=== PATIENT | male | born 1980 | race Caucasian/White ===

== ENCOUNTER 2022-01-25 13:09 | Emergency (ER) | payer SELFPAY ==
[~2022-01-25] VITALS: Ht 182.9 cm; Wt 75.0 kg
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
--- NOTE | 2022-01-25 14:20 | NUR ---
dr mares at bedside.
[2022-01-25] MEDS ORDERED: iohexol 300mg/ml 100ml inj. ONE (14:43)
--- NOTE | 2022-01-25 14:48 | NUR ---
[employer] AT HERE AT BEDSIDE ,PT IS NOT IN ROOM .WENT TO CT SCAN ,NOTIFIED THE OFFICER.
[2022-01-25] MEDS ORDERED: LIDO700A32 TOP (15:34)
[2022-01-25] MEDS ORDERED: KETO10TA2 PO (15:34)
[2022-01-25] MEDS ORDERED: acetaminophen 325mg tablet PO ONE (15:35)
[2022-01-25] MEDS ORDERED: ketorolac trometh. 30mg/ml inj. IV ONE (15:35)
[2022-01-25] MEDS ORDERED: proCHLORperazine 10 MG/2 ml inj IV ONE (15:35)
[2022-01-25] MEDS ORDERED: HYDROcodone/acetaminophen 5mg/325mg tablet PO ONE (15:35)
[2022-01-25 18:12] VITALS: BP 148/90
== END 2022-01-25 18:37 | disposition home or self-care (01) ==
LOC: ER 13:11
DX: S02.2XXA Fracture of nasal bones, initial encounter for closed fracture (principal); S22.32XA Fracture of one rib, left side, initial encounter for closed fracture; S80.211A Abrasion, right knee, initial encounter; S40.811A Abrasion of right upper arm, initial encounter; M79.601 Pain in right arm; M79.605 Pain in left leg; R51.9 Headache, unspecified; M54.89 Other dorsalgia; Z59.00 Homelessness unspecified; Z88.0 Allergy status to penicillin; Y08.89XA Assault by other specified means, initial encounter; Y93.89 Activity, other specified; Y92.89 Other specified places as the place of occurrence of the external cause; Y99.8 Other external cause status
CPT/HCPCS: 70450; 70486; 71260; 72125; 73090; 73560; 74177; 96374; 96375; 99285; J0780; J1885; Q9967

== ENCOUNTER 2022-05-13 20:56 | Emergency (ER) | payer MEDICAID ==
[~2022-05-13] VITALS: Ht 182.9 cm; Wt 75.0 kg
[~2022-05-13 20:56] MED LIST: KETO10TA2 PO; LIDO700A32 TOP; SULF1TAB45 PO
[2022-05-13 21:51] LABS: BASOPHILS % (AUTO) 0.5 % (0-1); EOSINOPHILS # (AUTO) 0.1 X10'3 (0-0.9); EOSINOPHILS % (AUTO) 0.9 % (0-6); HEMATOCRIT 44.1 % (42.0-52.0); HEMOGLOBIN 15.2 g/dl (14.0-17.9); LYMPHOCYTES # (AUTO) 1.4 X10'3 (1.1-4.8); LYMPHOCYTES % (AUTO) 13.6 % (21-51); MEAN CORPUSCULAR HEMOGLOBIN 31.9 PG (27.0-31.0); MEAN CORPUSCULAR HGB CONC 34.4 g/dL (33.0-36.5); MEAN CORPUSCULAR VOLUME 92.7 FL (78-98); MEAN PLATELET VOLUME 9.4 FL (7.4-10.4); MONOCYTES # (AUTO) 1.7 X10'3 (0-0.9); MONOCYTES % (AUTO) 16.5 % (2-12); NEUTROPHILS # (AUTO) 7.2 X10'3 (1.8-7.7); NEUTROPHILS % (AUTO) 68.5 % (42-75); PLATELET COUNT 208 X10'3 (140-440); RED BLOOD COUNT 4.76 X10'6 (4.70-6.10); RED CELL DISTRIBUTION WIDTH 13.5 % (11.5-14.5); WHITE BLOOD COUNT 10.5 X10'3 (4.5-11.0)
[2022-05-13 22:03] LABS: ALANINE AMINOTRANSFERASE 20 U/L (12-78); ALBUMIN 3.9 G/DL (3.4-5.0); ALKALINE PHOSPHATASE 88 IU/L (46-116); ANION GAP 6 (8-16); ASPARTATE AMINO TRANSFERASE 17 U/L (10-37); BILIRUBIN,TOTAL 0.5 MG/DL (0.1-1.0); BLOOD UREA NITROGEN 16 MG/DL (7-18); BUN/CREATININE RATIO 18.4 (5.4-32.0); CALCIUM 8.9 MG/DL (8.5-10.1); CHLORIDE 98 MMOL/L (99-107); CREATININE 0.87 MG/DL (0.60-1.10); GLUCOSE 85 MG/DL (70-104); POTASSIUM 4.2 MMOL/L (3.5-5.1); SODIUM 132 MMOL/L (135-145); TOTAL CARBON DIOXIDE 27.6 MMOL/L (24-32); TOTAL PROTEIN 7.9 G/DL (6.4-8.2); eGFR > 90 ML/MIN
[2022-05-13 22:11] LABS: MAGNESIUM 2.1 MG/DL (1.5-2.4)
[2022-05-13 22:27] LABS: TOTAL CELLS COUNTED 100
[2022-05-13 22:28] LABS: PLATELET ESTIMATE NORMAL
[2022-05-14 04:01] VITALS: BP 127/80
== END 2022-05-14 04:03 | disposition home or self-care (01) ==
LOC: ER 20:57
DX: R07.89 Other chest pain (principal); F17.200 Nicotine dependence, unspecified, uncomplicated; Z88.0 Allergy status to penicillin; Z59.00 Homelessness unspecified
CPT/HCPCS: 36415; 71045; 80053; 83735; 83880; 84484; 85007; 85025; 93005; 99285

== ENCOUNTER 2022-05-19 16:35 | Emergency (ER) | payer MEDICAID ==
[~2022-05-19] VITALS: Ht 182.9 cm; Wt 75.0 kg
[2022-05-19 17:00] VITALS: BP 165/99
[2022-05-19 18:29] LABS: BASOPHILS # (AUTO) 0.1 X10'3 (0-0.2); EOSINOPHILS # (AUTO) 0.2 X10'3 (0-0.9); EOSINOPHILS % (AUTO) 2.6 % (0-6); HEMATOCRIT 40.8 % (42.0-52.0); HEMOGLOBIN 13.9 g/dl (14.0-17.9); LYMPHOCYTES # (AUTO) 2.3 X10'3 (1.1-4.8); LYMPHOCYTES % (AUTO) 24.8 % (21-51); MEAN CORPUSCULAR HEMOGLOBIN 31.9 PG (27.0-31.0); MEAN CORPUSCULAR HGB CONC 34.1 g/dL (33.0-36.5); MEAN CORPUSCULAR VOLUME 93.5 FL (78-98); MEAN PLATELET VOLUME 8.1 FL (7.4-10.4); MONOCYTES # (AUTO) 0.8 X10'3 (0-0.9); MONOCYTES % (AUTO) 9.1 % (2-12); NEUTROPHILS # (AUTO) 5.7 X10'3 (1.8-7.7); NEUTROPHILS % (AUTO) 62.5 % (42-75); PLATELET COUNT 329 X10'3 (140-440); RED BLOOD COUNT 4.37 X10'6 (4.70-6.10); RED CELL DISTRIBUTION WIDTH 12.9 % (11.5-14.5); WHITE BLOOD COUNT 9.1 X10'3 (4.5-11.0)
[2022-05-19 18:43] LABS: ALANINE AMINOTRANSFERASE 27 U/L (12-78); ALBUMIN 3.5 G/DL (3.4-5.0); ALBUMIN/GLOBULIN RATIO 0.9 (1.1-1.5); ALKALINE PHOSPHATASE 92 IU/L (46-116); ANION GAP 4 (8-16); ASPARTATE AMINO TRANSFERASE 21 U/L (10-37); BILIRUBIN,TOTAL 0.3 MG/DL (0.1-1.0); BLOOD UREA NITROGEN 19 MG/DL (7-18); BUN/CREATININE RATIO 20.9 (5.4-32.0); CALCIUM 8.9 MG/DL (8.5-10.1); CHLORIDE 103 MMOL/L (99-107); CREATININE 0.91 MG/DL (0.60-1.10); GLUCOSE 98 MG/DL (70-104); POTASSIUM 4.2 MMOL/L (3.5-5.1); SODIUM 138 MMOL/L (135-145); TOTAL CARBON DIOXIDE 30.6 MMOL/L (24-32); TOTAL PROTEIN 7.2 G/DL (6.4-8.2); eGFR > 90 ML/MIN
[2022-05-19] MEDS ORDERED: HYDROcodone/acetaminophen 10/325mg tab PO ONE (18:45)
[2022-05-19] MEDS ORDERED: sulfamethoxazole/trimethoprim DS (800/160mg) tablet PO ONE (18:50)
[2022-05-19] MEDS ORDERED: SULF1TAB49 PO ×2 (18:51→19:10)
== END 2022-05-19 19:23 | disposition home or self-care (01) ==
LOC: ER 16:36
DX: L02.512 Cutaneous abscess of left hand (principal); F17.200 Nicotine dependence, unspecified, uncomplicated; Z88.0 Allergy status to penicillin; Z59.00 Homelessness unspecified
CPT/HCPCS: 26010; 36415; 73140; 80053; 85025; 99284; A6223; J7030; A6258

== ENCOUNTER 2022-11-12 12:23 | Emergency (ER) | payer MEDICAID ==
[~2022-11-12] VITALS: Ht 182.9 cm; Wt 90.9 kg
[~2022-11-12 12:23] MED LIST changes: -SULF1TAB45 PO
[2022-11-12 15:38] LABS: BASOPHILS % (AUTO) 0.6 % (0-1); EOSINOPHILS # (AUTO) 0.2 X10'3 (0-0.9); EOSINOPHILS % (AUTO) 3.6 % (0-6); HEMATOCRIT 39.2 % (42.0-52.0); HEMOGLOBIN 13.1 g/dl (14.0-17.9); LYMPHOCYTES % (AUTO) 29.9 % (21-51); MEAN CORPUSCULAR HEMOGLOBIN 32.7 PG (27.0-31.0); MEAN CORPUSCULAR HGB CONC 33.5 g/dL (33.0-36.5); MEAN CORPUSCULAR VOLUME 97.5 FL (78-98); MEAN PLATELET VOLUME 9.4 FL (7.4-10.4); MONOCYTES # (AUTO) 0.7 X10'3 (0-0.9); MONOCYTES % (AUTO) 9.7 % (2-12); NEUTROPHILS # (AUTO) 3.8 X10'3 (1.8-7.7); NEUTROPHILS % (AUTO) 56.2 % (42-75); PLATELET COUNT 221 X10'3 (140-440); RED BLOOD COUNT 4.02 X10'6 (4.70-6.10); RED CELL DISTRIBUTION WIDTH 14.4 % (11.5-14.5); WHITE BLOOD COUNT 6.7 X10'3 (4.5-11.0)
[2022-11-12 15:41] LABS: URINE AMPHETAMINE SCREEN NEGATIVE (Neg); URINE BARBITUATE SCREEN NEGATIVE (Neg); URINE BENZODIAZEPINES SCREEN NEGATIVE (Neg); URINE CANNABINOID SCREEN NEGATIVE (Neg); URINE COCAINE SCREEN NEGATIVE (Neg); URINE METHADONE SCREEN NEGATIVE (Neg); URINE OPIATE SCREEN NEGATIVE (Neg); URINE PHENCYCLIDINE SCREEN NEGATIVE (Neg)
[2022-11-12 15:42] LABS: CLARITY,URINE CLEAR (Clear); COLOR,URINE YELLOW (Yellow); GLUCOSE, URINE NEGATIVE (Neg); KETONES,URINE NEGATIVE (Neg); LEUKOCYTE ESTERASE ,URINE NEGATIVE (Neg); NITRITES, URINE NEGATIVE (Neg); OCCULT BLOOD,URINE NEGATIVE (Neg); PH,URINE 5.5 (4.8-8.0); PROTEIN,URINE NEGATIVE (Neg); UROBILINOGEN,URINE 0.2 E.U/dL (0.2-1.0)
[2022-11-12 15:53] LABS: UA COLLECTION TYPE CLN CATCH MIDSTREAM
[2022-11-12 15:56] LABS: ALANINE AMINOTRANSFERASE 89 U/L (12-78); ALBUMIN 4.1 G/DL (3.4-5.0); ALBUMIN/GLOBULIN RATIO 1.4 (1.1-1.5); ALKALINE PHOSPHATASE 100 IU/L (46-116); ANION GAP 6 (8-16); ASPARTATE AMINO TRANSFERASE 48 U/L (10-37); BILIRUBIN,TOTAL 0.3 MG/DL (0.1-1.0); BLOOD UREA NITROGEN 19 MG/DL (7-18); BUN/CREATININE RATIO 21.8 (5.4-32.0); CALCIUM 8.5 MG/DL (8.5-10.1); CHLORIDE 106 MMOL/L (99-107); CREATININE 0.87 MG/DL (0.60-1.10); ETHANOL < 0.010 GM/DL (0.0-0.010); GLUCOSE 93 MG/DL (70-104); POTASSIUM 4.4 MMOL/L (3.5-5.1); SODIUM 142 MMOL/L (135-145); TOTAL CARBON DIOXIDE 29.8 MMOL/L (24-32); eGFR > 90 ML/MIN
--- NOTE | 2022-11-13 04:46 | NUR ---
packet sent to [facility]
[2022-11-13 05:07] VITALS: BP 109/70
[2022-11-13] MEDS ORDERED: OLAN5TAB75 PO (05:10)
--- NOTE | 2022-11-13 06:33 | NUR ---
Patient sleeping supine. No distress observed. Continue to monitor.
--- NOTE | 2022-11-13 07:53 | NUR ---
Андрей Birch, [facility], .
[2022-11-13] MEDS ORDERED: olanzapine 10mg tablet PO SCH (08:00)
--- NOTE | 2022-11-13 09:40 | NUR ---
Dwain GONZALEZ, evaluating patient. No distress observed. Continue to monitor.
--- NOTE | 2022-11-13 11:22 | NUR ---
Patient calm and cooperative. No distress observed. Continue to monitor.
--- NOTE | 2022-11-13 12:23 | NUR ---
Patient eating lunch. No distress observed. Continue to monitor.
== END 2022-11-13 16:56 ==
LOC: ER 12:24
DX: R45.851 Suicidal ideations (principal); Z20.822 Contact with and (suspected) exposure to COVID-19; F15.10 Other stimulant abuse, uncomplicated; Z59.00 Homelessness unspecified; Z88.0 Allergy status to penicillin; Z79.2 Long term (current) use of antibiotics
CPT/HCPCS: 36415; 80053; 80305; 80320; 81003; 84443; 85025; 87811; 99285

== ENCOUNTER 2022-12-10 12:07 | Emergency (ER) | payer MEDICAID ==
[~2022-12-10] VITALS: Ht 182.9 cm; Wt 81.8 kg
[~2022-12-10 12:07] MED LIST changes: -KETO10TA2 PO; -LIDO700A32 TOP; +OLAN5TAB75 PO
[2022-12-10 14:05] LABS: BASOPHILS # (AUTO) 0.1 X10'3 (0-0.2); BASOPHILS % (AUTO) 1.2 % (0-1); EOSINOPHILS # (AUTO) 0.2 X10'3 (0-0.9); EOSINOPHILS % (AUTO) 2.2 % (0-6); HEMATOCRIT 42.3 % (42.0-52.0); HEMOGLOBIN 14.3 g/dl (14.0-17.9); LYMPHOCYTES # (AUTO) 2.4 X10'3 (1.1-4.8); MEAN CORPUSCULAR HEMOGLOBIN 32.5 PG (27.0-31.0); MEAN CORPUSCULAR HGB CONC 33.8 g/dL (33.0-36.5); MEAN CORPUSCULAR VOLUME 96.4 FL (78-98); MEAN PLATELET VOLUME 9.1 FL (7.4-10.4); MONOCYTES # (AUTO) 0.9 X10'3 (0-0.9); MONOCYTES % (AUTO) 9.1 % (2-12); NEUTROPHILS # (AUTO) 5.9 X10'3 (1.8-7.7); NEUTROPHILS % (AUTO) 62.5 % (42-75); PLATELET COUNT 214 X10'3 (140-440); RED BLOOD COUNT 4.39 X10'6 (4.70-6.10); RED CELL DISTRIBUTION WIDTH 13.4 % (11.5-14.5); WHITE BLOOD COUNT 9.4 X10'3 (4.5-11.0)
[2022-12-10 14:10] LABS: URINE AMPHETAMINE SCREEN NEGATIVE (Neg); URINE BARBITUATE SCREEN NEGATIVE (Neg); URINE BENZODIAZEPINES SCREEN NEGATIVE (Neg); URINE CANNABINOID SCREEN NEGATIVE (Neg); URINE COCAINE SCREEN NEGATIVE (Neg); URINE METHADONE SCREEN NEGATIVE (Neg); URINE OPIATE SCREEN NEGATIVE (Neg); URINE PHENCYCLIDINE SCREEN NEGATIVE (Neg)
[2022-12-10 14:17] LABS: ALANINE AMINOTRANSFERASE 48 U/L (12-78); ALBUMIN 4.4 G/DL (3.4-5.0); ALBUMIN/GLOBULIN RATIO 1.5 (1.1-1.5); ALKALINE PHOSPHATASE 74 IU/L (46-116); ANION GAP 9 (8-16); ASPARTATE AMINO TRANSFERASE 32 U/L (10-37); BILIRUBIN,TOTAL 0.5 MG/DL (0.1-1.0); BLOOD UREA NITROGEN 19 MG/DL (7-18); BUN/CREATININE RATIO 21.8 (5.4-32.0); CALCIUM 9.1 MG/DL (8.5-10.1); CHLORIDE 101 MMOL/L (99-107); CREATININE 0.87 MG/DL (0.60-1.10); GLUCOSE 89 MG/DL (70-104); POTASSIUM 4.1 MMOL/L (3.5-5.1); SODIUM 139 MMOL/L (135-145); TOTAL CARBON DIOXIDE 28.7 MMOL/L (24-32); TOTAL PROTEIN 7.3 G/DL (6.4-8.2); eGFR > 90 ML/MIN
[2022-12-10 14:18] LABS: ETHANOL < 0.010 GM/DL (0.0-0.010)
--- NOTE | 2022-12-10 14:30 | NUR ---
Patient eating lunch. No distress observed. Continue to monitor.
[2022-12-10 15:24] LABS: CLARITY,URINE CLEAR (Clear); COLOR,URINE STRAW (Yellow); GLUCOSE, URINE NEGATIVE (Neg); KETONES,URINE NEGATIVE (Neg); LEUKOCYTE ESTERASE ,URINE NEGATIVE (Neg); NITRITES, URINE NEGATIVE (Neg); OCCULT BLOOD,URINE NEGATIVE (Neg); PROTEIN,URINE NEGATIVE (Neg); UROBILINOGEN,URINE 0.2 E.U/dL (0.2-1.0)
[2022-12-10 15:25] LABS: UA COLLECTION TYPE CLN CATCH MIDSTREAM
[2022-12-10] MEDS ORDERED: OLAN10TA73 PO ×2 (16:54)
[2022-12-10] MEDS ORDERED: LAMO25TA41 PO (16:54)
[2022-12-10] MEDS ORDERED: LAMO25TA5 PO (17:18)
--- NOTE | 2022-12-10 19:23 | NUR ---
The patient was made aware of the plan of care. He has been having constant voices prior to admit to the ER despite being med complaint and not abusing any substances. He reports suicidal thoughts and feeling hopeless about continued mental health symptoms "It's getting a little bit worse and a little bit worse all the time"
--- NOTE | 2022-12-10 19:26 | NUR ---
Call to [facility] and made them aware that the patient needed an ankle monitor senior trial attorney.
--- NOTE | 2022-12-10 19:46 | NUR ---
Nurse to nurse with [facility]
--- NOTE | 2022-12-10 20:27 | NUR ---
[facility]. [facility] will arrange transport for in the AM.
[2022-12-10] MEDS ORDERED: olanzapine 10mg tablet PO SCH (21:00)
--- NOTE | 2022-12-10 21:59 | NUR ---
The patient appears to be sleeping.
--- NOTE | 2022-12-10 22:51 | NUR ---
CORRECTION: THE PATIENT HAS BEEN ACCEPTED AT [facility] [place] PER RN AT THE [place] [facility] NOT IN [place]
--- NOTE | 2022-12-10 23:57 | NUR ---
The patient appears to be sleeping
--- NOTE | 2022-12-11 00:49 | NUR ---
The patient appears to be sleeping
--- NOTE | 2022-12-11 02:41 | NUR ---
The patient appears to be sleeping
--- NOTE | 2022-12-11 05:05 | NUR ---
The patient appears to be sleeping
[2022-12-11 05:33] VITALS: BP 106/68
--- NOTE | 2022-12-11 06:34 | NUR ---
Patient sleeping supine. No distress observed. Continue to monitor.
[2022-12-11] MEDS ORDERED: lamoTRIgine 25mg tablet PO SCH (08:00)
[2022-12-11] MEDS ORDERED: LAMOTRIGINE PO SCH (08:00)
[2022-12-11] MEDS ORDERED: olanzapine 10mg tablet PO SCH (08:00)
--- NOTE | 2022-12-11 08:10 | NUR ---
Patient sitting up and eating breakfast. No distress observed. Continue to monitor.
== END 2022-12-11 09:11 ==
LOC: ER 12:08
DX: R45.851 Suicidal ideations (principal); Z20.822 Contact with and (suspected) exposure to COVID-19; R45.850 Homicidal ideations; F12.10 Cannabis abuse, uncomplicated; Z88.0 Allergy status to penicillin; Z79.899 Other long term (current) drug therapy
CPT/HCPCS: 36415; 80053; 80305; 80320; 81003; 84443; 85025; 87811; 99285

== ENCOUNTER 2023-01-03 12:38 | Emergency (ER) | payer MEDICAID ==
[~2023-01-03] VITALS: Ht 182.9 cm; Wt 86.4 kg
[~2023-01-03 12:38] MED LIST changes: +LAMO25TA5 PO; +OLAN10TA73 PO; -OLAN5TAB75 PO
[2023-01-03 15:49] LABS: BASOPHILS % (AUTO) 0.6 % (0-1); EOSINOPHILS # (AUTO) 0.2 X10'3 (0-0.9); EOSINOPHILS % (AUTO) 3.2 % (0-6); HEMATOCRIT 40.2 % (42.0-52.0); HEMOGLOBIN 13.8 g/dl (14.0-17.9); LYMPHOCYTES # (AUTO) 2.3 X10'3 (1.1-4.8); LYMPHOCYTES % (AUTO) 35.5 % (21-51); MEAN CORPUSCULAR HEMOGLOBIN 32.7 PG (27.0-31.0); MEAN CORPUSCULAR HGB CONC 34.2 g/dL (33.0-36.5); MEAN CORPUSCULAR VOLUME 95.6 FL (78-98); MEAN PLATELET VOLUME 9.3 FL (7.4-10.4); MONOCYTES # (AUTO) 0.7 X10'3 (0-0.9); MONOCYTES % (AUTO) 9.9 % (2-12); NEUTROPHILS # (AUTO) 3.4 X10'3 (1.8-7.7); NEUTROPHILS % (AUTO) 50.8 % (42-75); PLATELET COUNT 184 X10'3 (140-440); RED BLOOD COUNT 4.21 X10'6 (4.70-6.10); RED CELL DISTRIBUTION WIDTH 12.9 % (11.5-14.5); WHITE BLOOD COUNT 6.6 X10'3 (4.5-11.0)
[2023-01-03 16:13] LABS: ALANINE AMINOTRANSFERASE 24 U/L (12-78); ALBUMIN/GLOBULIN RATIO 1.5 (1.1-1.5); ALKALINE PHOSPHATASE 89 IU/L (46-116); ANION GAP 4 (8-16); ASPARTATE AMINO TRANSFERASE 22 U/L (10-37); BILIRUBIN,TOTAL 0.3 MG/DL (0.1-1.0); BLOOD UREA NITROGEN 19 MG/DL (7-18); BUN/CREATININE RATIO 18.6 (5.4-32.0); CALCIUM 8.9 MG/DL (8.5-10.1); CHLORIDE 106 MMOL/L (99-107); CREATININE 1.02 MG/DL (0.60-1.10); GLUCOSE 102 MG/DL (70-104); POTASSIUM 3.9 MMOL/L (3.5-5.1); SODIUM 142 MMOL/L (135-145); TOTAL CARBON DIOXIDE 32.2 MMOL/L (24-32); TOTAL PROTEIN 6.7 G/DL (6.4-8.2); eGFR 80 ML/MIN
[2023-01-03 16:17] LABS: ETHANOL < 0.010 GM/DL (0.0-0.010)
--- NOTE | 2023-01-03 17:46 | NUR ---
PT RESTING ON LEFT SIDE WITH EYES CLOSED, EQUAL NON-LABORED RESPIRATIONS.
[2023-01-03 18:34] LABS: URINE AMPHETAMINE SCREEN NEGATIVE (Neg); URINE BARBITUATE SCREEN NEGATIVE (Neg); URINE BENZODIAZEPINES SCREEN NEGATIVE (Neg); URINE CANNABINOID SCREEN NEGATIVE (Neg); URINE COCAINE SCREEN NEGATIVE (Neg); URINE METHADONE SCREEN NEGATIVE (Neg); URINE OPIATE SCREEN NEGATIVE (Neg); URINE PHENCYCLIDINE SCREEN NEGATIVE (Neg)
[2023-01-03 18:36] LABS: CLARITY,URINE SLIGHTLY CLOUDY (Clear); COLOR,URINE YELLOW (Yellow); GLUCOSE, URINE NEGATIVE (Neg); KETONES,URINE NEGATIVE (Neg); LEUKOCYTE ESTERASE ,URINE NEGATIVE (Neg); NITRITES, URINE NEGATIVE (Neg); OCCULT BLOOD,URINE NEGATIVE (Neg); PROTEIN,URINE NEGATIVE (Neg); UROBILINOGEN,URINE 0.2 E.U/dL (0.2-1.0)
[2023-01-03 18:38] LABS: UA COLLECTION TYPE URINAL
[2023-01-03 18:42] LABS: BACTERIA,URINE FEW /HPF (Neg); RBC,URINE 0-2 /HPF (0-2); SQUAMOUS EPITHELIAL CELL,UR FEW /LPF (FEW); WBC,URINE 0-4 /HPF (0-4)
--- NOTE | 2023-01-04 08:22 | NUR ---
Served breakfast to the patient. Pt calm. Pt admitted this am during my morning rounds that he still has suicidal thoughts but denied any specific plan on harming self at this time.
--- NOTE | 2023-01-04 12:09 | NUR ---
Pt asleep at this time. Pt urinated to the bathroom once since the beginning of my shift Patient denied pain.
[2023-01-04] MEDS ORDERED: PROP10TA10 PO (13:23)
--- NOTE | 2023-01-04 15:06 | NUR ---
Report given to Bryan BREEN at [facility]. Per Bryan BREEN, they received referral from our hospital about admission of this patient to their facility.
--- NOTE | 2023-01-04 15:33 | NUR ---
Spoke to Jaja, Rehab Therapy Manager at [facility] facility. Per Jaja, patient has been accepted to [facility] and estimated pickling tank operator time is 07:30 pm tonight. She said they will need a TSH level prior to transfer.
--- NOTE | 2023-01-04 16:20 | NUR ---
Report given to Letitia VILLALOBOS at [facility]
[2023-01-04 19:32] VITALS: BP 120/85
== END 2023-01-04 20:05 | disposition short-term general hospital (02) ==
LOC: ER 12:38
DX: R45.851 Suicidal ideations (principal); Z20.822 Contact with and (suspected) exposure to COVID-19; F31.89 Other bipolar disorder; F25.9 Schizoaffective disorder, unspecified; F15.20 Other stimulant dependence, uncomplicated; Z88.0 Allergy status to penicillin; Z59.00 Homelessness unspecified; Z56.0 Unemployment, unspecified
CPT/HCPCS: 36415; 80053; 80305; 80320; 81001; 84443; 85025; 87811; 99285

== ENCOUNTER 2023-04-07 14:55 | Emergency (ER) | payer MEDICAID ==
[~2023-04-07] VITALS: Ht 182.9 cm; Wt 90.9 kg
[~2023-04-07 14:55] MED LIST changes: -LAMO25TA5 PO; +PROP10TA10 PO
[2023-04-07 15:42] LABS: BASOPHILS # (AUTO) 0.1 X10'3 (0-0.2); EOSINOPHILS # (AUTO) 0.3 X10'3 (0-0.9); EOSINOPHILS % (AUTO) 3.2 % (0-6); HEMATOCRIT 48.3 % (42.0-52.0); HEMOGLOBIN 16.5 g/dl (14.0-17.9); LYMPHOCYTES # (AUTO) 2.6 X10'3 (1.1-4.8); LYMPHOCYTES % (AUTO) 25.6 % (21-51); MEAN CORPUSCULAR HGB CONC 34.2 g/dL (33.0-36.5); MEAN CORPUSCULAR VOLUME 93.6 FL (78-98); MEAN PLATELET VOLUME 9.6 FL (7.4-10.4); MONOCYTES # (AUTO) 0.8 X10'3 (0-0.9); MONOCYTES % (AUTO) 8.2 % (2-12); NEUTROPHILS # (AUTO) 6.4 X10'3 (1.8-7.7); PLATELET COUNT 215 X10'3 (140-440); RED BLOOD COUNT 5.16 X10'6 (4.70-6.10); RED CELL DISTRIBUTION WIDTH 12.9 % (11.5-14.5); WHITE BLOOD COUNT 10.3 X10'3 (4.5-11.0)
[2023-04-07 16:02] LABS: ALANINE AMINOTRANSFERASE 29 U/L (12-78); ALBUMIN 4.2 G/DL (3.4-5.0); ALBUMIN/GLOBULIN RATIO 1.2 (1.1-1.5); ALKALINE PHOSPHATASE 121 IU/L (46-116); ANION GAP 7 (8-16); ASPARTATE AMINO TRANSFERASE 22 U/L (10-37); BILIRUBIN,TOTAL 0.4 MG/DL (0.1-1.0); BLOOD UREA NITROGEN 15 MG/DL (7-18); BUN/CREATININE RATIO 14.3 (10.0-20.0); CALCIUM 9.2 MG/DL (8.5-10.1); CHLORIDE 104 MMOL/L (99-107); CREATININE 1.05 MG/DL (0.60-1.10); GLUCOSE 110 MG/DL (70-104); POTASSIUM 4.2 MMOL/L (3.5-5.1); SODIUM 138 MMOL/L (135-145); TOTAL CARBON DIOXIDE 27.1 MMOL/L (24-32); TOTAL PROTEIN 7.6 G/DL (6.4-8.2); eGFR 77 ML/MIN
[2023-04-07 16:14] LABS: ETHANOL < 0.010 GM/DL (0.0-0.010)
[2023-04-07 18:18] LABS: CLARITY,URINE CLEAR (Clear); COLOR,URINE YELLOW (Yellow); GLUCOSE, URINE NEGATIVE (Neg); KETONES,URINE NEGATIVE (Neg); LEUKOCYTE ESTERASE ,URINE NEGATIVE (Neg); NITRITES, URINE NEGATIVE (Neg); OCCULT BLOOD,URINE NEGATIVE (Neg); PROTEIN,URINE NEGATIVE (Neg); UROBILINOGEN,URINE 0.2 E.U/dL (0.2-1.0)
[2023-04-07 18:25] LABS: UA COLLECTION TYPE VOIDED
[2023-04-07 18:42] LABS: URINE AMPHETAMINE SCREEN NEGATIVE (Neg); URINE BARBITUATE SCREEN NEGATIVE (Neg); URINE BENZODIAZEPINES SCREEN NEGATIVE (Neg); URINE CANNABINOID SCREEN NEGATIVE (Neg); URINE COCAINE SCREEN NEGATIVE (Neg); URINE METHADONE SCREEN NEGATIVE (Neg); URINE OPIATE SCREEN NEGATIVE (Neg); URINE PHENCYCLIDINE SCREEN NEGATIVE (Neg)
--- NOTE | 2023-04-07 18:49 | NUR ---
The patient was moved from the main ER to bed 25. He was cooperative with the move and finishing the admit process. He reports he has been diagnoised with schizophrenia. He denies drug or ETOH abuse. He reports voices telling him "You might as well end it. You're worthless" He denies visual hallucinations currently. He is currently living in a sober living enviroment. Reports he is suicidal with a plan to overdose on Fentanyl which he states he has access to.
--- NOTE | 2023-04-07 19:00 | NUR ---
PACKET SENT TO [facility]
--- NOTE | 2023-04-07 19:19 | NUR ---
Nurse to nurse with Wendie at [facility].
--- NOTE | 2023-04-07 21:09 | NUR ---
The patient will be transported at 10am tomorrow to [facility].
[2023-04-07] MEDS ORDERED: SERT100T PO (21:17)
[2023-04-07] MEDS ORDERED: SERT-434 (21:17)
[2023-04-07] MEDS ORDERED: ASEN10TA11 (21:17)
[2023-04-07] MEDS ORDERED: LITH300C PO (21:17)
[2023-04-07] MEDS ORDERED: HYDR-3686 PO (21:17)
[2023-04-07] MEDS ORDERED: PROP20TA6 PO (21:17)
[2023-04-07] MEDS ORDERED: hydrOXYzine 25 MG tablet PO PRN (21:32)
[2023-04-07] MEDS ORDERED: lithium carbonate 150mg capsule PO SCH (21:36)
[2023-04-07] MEDS ORDERED: sertraline 50mg tablet PO SCH (21:37)
[2023-04-07] MEDS: propranolol 10mg tablet PO SCH (22:00)
[2023-04-07] MEDS: olanzapine 10mg tablet PO SCH (22:00)
[2023-04-07] MEDS: asenapine 5mg TAB.SUBL SL SCH (22:00)
--- NOTE | 2023-04-07 22:18 | NUR ---
HS medications given. Patient made aware that he would be transferred to [facility] in the morning.
--- NOTE | 2023-04-08 00:01 | NUR ---
The patient was resting on his bed but is restless
--- NOTE | 2023-04-08 01:06 | NUR ---
The patient appears to be sleeping
--- NOTE | 2023-04-08 02:52 | NUR ---
The patient appears to be sleeping
[2023-04-08 05:18] VITALS: BP 113/85
--- NOTE | 2023-04-08 06:35 | NUR ---
Patient sleeping supine. No distress observed. Continue to monitor.
--- NOTE | 2023-04-08 08:11 | NUR ---
Patient sitting up and eating breakfast. No distress observed. Continue to monitor.
[2023-04-08] MEDS: propranolol 10mg tablet PO SCH (08:23)
[2023-04-08] MEDS: asenapine 5mg TAB.SUBL SL SCH (08:23)
[2023-04-08] MEDS: olanzapine 10mg tablet PO SCH (08:23)
== END 2023-04-08 09:50 ==
LOC: ER 14:56
DX: R45.851 Suicidal ideations (principal); Z20.822 Contact with and (suspected) exposure to COVID-19; R45.850 Homicidal ideations; F31.9 Bipolar disorder, unspecified; F15.20 Other stimulant dependence, uncomplicated; Z88.0 Allergy status to penicillin; Z59.00 Homelessness unspecified; Z56.0 Unemployment, unspecified
CPT/HCPCS: 36415; 80053; 80305; 80320; 81003; 84443; 85025; 87811; 99285; C2617

== ENCOUNTER 2023-05-05 13:22 | Emergency (ER) | payer MEDICAID ==
[~2023-05-05] VITALS: Ht 182.9 cm; Wt 100.0 kg
[~2023-05-05 13:22] MED LIST changes: +ASEN10TA11; +HYDR-3686 PO; +LITH300C PO; -PROP10TA10 PO; +PROP20TA6 PO; +SERT100T PO
[2023-05-05 14:17] LABS: CLARITY,URINE CLEAR (Clear); COLOR,URINE YELLOW (Yellow); GLUCOSE, URINE NEGATIVE (Neg); KETONES,URINE NEGATIVE (Neg); LEUKOCYTE ESTERASE ,URINE NEGATIVE (Neg); NITRITES, URINE NEGATIVE (Neg); OCCULT BLOOD,URINE NEGATIVE (Neg); PROTEIN,URINE NEGATIVE (Neg); UROBILINOGEN,URINE 0.2 E.U/dL (0.2-1.0)
[2023-05-05 14:18] LABS: BASOPHILS # (AUTO) 0.1 X10'3 (0-0.2); BASOPHILS % (AUTO) 0.7 % (0-1); EOSINOPHILS # (AUTO) 0.2 X10'3 (0-0.9); EOSINOPHILS % (AUTO) 1.6 % (0-6); HEMATOCRIT 47.1 % (42.0-52.0); HEMOGLOBIN 16.1 g/dl (14.0-17.9); LYMPHOCYTES # (AUTO) 2.3 X10'3 (1.1-4.8); LYMPHOCYTES % (AUTO) 18.3 % (21-51); MEAN CORPUSCULAR HEMOGLOBIN 31.1 PG (27.0-31.0); MEAN CORPUSCULAR HGB CONC 34.1 g/dL (33.0-36.5); MEAN CORPUSCULAR VOLUME 91.2 FL (78-98); MEAN PLATELET VOLUME 9.5 FL (7.4-10.4); MONOCYTES # (AUTO) 0.9 X10'3 (0-0.9); MONOCYTES % (AUTO) 7.3 % (2-12); NEUTROPHILS # (AUTO) 9.2 X10'3 (1.8-7.7); NEUTROPHILS % (AUTO) 72.1 % (42-75); PLATELET COUNT 219 X10'3 (140-440); RED BLOOD COUNT 5.16 X10'6 (4.70-6.10); RED CELL DISTRIBUTION WIDTH 13.2 % (11.5-14.5); WHITE BLOOD COUNT 12.7 X10'3 (4.5-11.0)
[2023-05-05 14:19] LABS: UA COLLECTION TYPE VOIDED
[2023-05-05] MEDS ORDERED: HALO10TA13 PO (14:23)
[2023-05-05 14:35] LABS: ALANINE AMINOTRANSFERASE 35 U/L (12-78); ALBUMIN 4.2 G/DL (3.4-5.0); ALBUMIN/GLOBULIN RATIO 1.3 (1.1-1.5); ALKALINE PHOSPHATASE 110 IU/L (46-116); ANION GAP 9 (8-16); ASPARTATE AMINO TRANSFERASE 25 U/L (10-37); BILIRUBIN,TOTAL 0.5 MG/DL (0.1-1.0); BLOOD UREA NITROGEN 12 MG/DL (7-18); BUN/CREATININE RATIO 10.8 (10.0-20.0); CHLORIDE 104 MMOL/L (99-107); CREATININE 1.11 MG/DL (0.60-1.10); GLUCOSE 129 MG/DL (70-104); POTASSIUM 3.9 MMOL/L (3.5-5.1); SODIUM 140 MMOL/L (135-145); TOTAL PROTEIN 7.4 G/DL (6.4-8.2); eGFR 72 ML/MIN
[2023-05-05 14:36] LABS: URINE AMPHETAMINE SCREEN NEGATIVE (Neg); URINE BARBITUATE SCREEN NEGATIVE (Neg); URINE BENZODIAZEPINES SCREEN NEGATIVE (Neg); URINE CANNABINOID SCREEN NEGATIVE (Neg); URINE COCAINE SCREEN NEGATIVE (Neg); URINE METHADONE SCREEN NEGATIVE (Neg); URINE OPIATE SCREEN NEGATIVE (Neg); URINE PHENCYCLIDINE SCREEN NEGATIVE (Neg)
[2023-05-05] MEDS ORDERED: OLANZapine 2.5MG tablet PO STA (14:44)
--- NOTE | 2023-05-05 14:44 | NUR ---
Items sent to , [facility]
--- NOTE | 2023-05-05 14:53 | NUR ---
Patient ambulated independently OF bed #20. Pt was calm/cooperative.
[2023-05-05 14:55] LABS: ETHANOL < 0.010 GM/DL (0.0-0.010)
--- NOTE | 2023-05-05 15:10 | NUR ---
FAXED PACKET TO [facility].
--- NOTE | 2023-05-05 15:22 | NUR ---
One to one with patient. Pt is calmly watching T.V and turned to mute when greeted. Pt presents with a flat affect. Pt reports he is here because "I am having suicide ideas." Pt denies HI, A/VH. Pt reports a recent medication change. Pt states "they decreased my Olanzepine and incresed my Haldol."
--- NOTE | 2023-05-05 16:04 | NUR ---
Pt being placed on hold. Pt was recently at [facility] and discharged to [facility]. Pt declines to safety plan, [facility] will take him back.
--- NOTE | 2023-05-05 18:10 | NUR ---
NURSE TO NURSE WITH JULES AT [facility].
--- NOTE | 2023-05-05 18:30 | NUR ---
The patient has been accepted at [facility] and [facility] will be here to pick at 8PM and the [facility] was made aware.
--- NOTE | 2023-05-05 18:44 | NUR ---
One to one with the patient. His affect is flat. He was cooperative with the evening assessment. He stated that he continues to have constant command AH. He stated he is also suicidal with a plan to overdose on Fentanyl.
[2023-05-05] MEDS ORDERED: propranolol 10mg tablet PO SCH (20:00)
[2023-05-05] MEDS ORDERED: olanzapine 10mg tablet PO SCH (20:00)
[2023-05-05] MEDS ORDERED: haloperidol 5mg tablet PO SCH (20:00)
--- NOTE | 2023-05-05 20:24 | NUR ---
The patient has been resting on his bed pending transfer to [facility]. [facility] contacted and they stated to go ahead of give his HS medications prior to transfer.
[2023-05-05 20:30] VITALS: BP 128/88
[2023-05-05] MEDS ORDERED: sertraline 50mg tablet PO SCH (21:00)
== END 2023-05-05 20:32 ==
LOC: ER 13:23
DX: R45.851 Suicidal ideations (principal); Z20.822 Contact with and (suspected) exposure to COVID-19; F20.9 Schizophrenia, unspecified; F41.9 Anxiety disorder, unspecified; F31.9 Bipolar disorder, unspecified; F15.90 Other stimulant use, unspecified, uncomplicated; Z59.00 Homelessness unspecified; Z56.0 Unemployment, unspecified; Z88.0 Allergy status to penicillin; Z79.899 Other long term (current) drug therapy
CPT/HCPCS: 36415; 80053; 80305; 80320; 81003; 84443; 85025; 87811; 99285

== ENCOUNTER 2024-09-22 15:11 | Emergency (ER) | payer MEDICAID ==
[~2024-09-22] VITALS: Ht 182.9 cm; Wt 82.0 kg
[~2024-09-22 15:11] MED LIST changes: -ASEN10TA11; +HALO10TA13 PO; -HYDR-3686 PO; -LITH300C PO
[2024-09-22] MEDS ORDERED: levetiracetam inj 1,000 MG in normal saline 100ml IV soln 100 ML IV ONE (18:15)
[2024-09-22] MEDS: levetiracetam-NACL1000mg/100ml 100 ML IV ONE (18:36)
[2024-09-22] MEDS: normal saline 1000ml 1,000 ML IV ONE (18:37)
[2024-09-22 18:54] LABS: BASOPHILS # (AUTO) 0.1 X10'3 (0-0.2); BASOPHILS % (AUTO) 0.9 % (0-1); EOSINOPHILS # (AUTO) 0.5 X10'3 (0-0.9); EOSINOPHILS % (AUTO) 3.3 % (0-6); HEMATOCRIT 41.9 % (42.0-52.0); HEMOGLOBIN 14.1 g/dl (14.0-17.9); LYMPHOCYTES # (AUTO) 2.2 X10'3 (1.1-4.8); LYMPHOCYTES % (AUTO) 15.3 % (21-51); MEAN CORPUSCULAR HEMOGLOBIN 31.2 PG (27.0-31.0); MEAN CORPUSCULAR HGB CONC 33.6 g/dL (33.0-36.5); MONOCYTES # (AUTO) 0.8 X10'3 (0-0.9); MONOCYTES % (AUTO) 5.6 % (2-12); NEUTROPHILS # (AUTO) 10.9 X10'3 (1.8-7.7); NEUTROPHILS % (AUTO) 74.9 % (42-75); PLATELET COUNT 261 X10'3 (140-440); WHITE BLOOD COUNT 14.6 X10'3 (4.5-11.0)
[2024-09-22 19:19] LABS: ALANINE AMINOTRANSFERASE 50 U/L (12-78); ALBUMIN 3.7 G/DL (3.4-5.0); ALBUMIN/GLOBULIN RATIO 1.2 (1.1-1.5); ALKALINE PHOSPHATASE 92 IU/L (46-116); ANION GAP 6 (8-16); ASPARTATE AMINO TRANSFERASE 20 U/L (10-37); BILIRUBIN,TOTAL 0.4 MG/DL (0.1-1.0); BLOOD UREA NITROGEN 19 MG/DL (7-18); BUN/CREATININE RATIO 16.5 (10.0-20.0); CHLORIDE 107 MMOL/L (99-107); CREATININE 1.15 MG/DL (0.60-1.10); GLUCOSE 109 MG/DL (70-104); SODIUM 141 MMOL/L (135-145); TOTAL CARBON DIOXIDE 28.3 MMOL/L (24-32); TOTAL PROTEIN 6.7 G/DL (6.4-8.2); eCRCL 90 ML/MIN; eGFR 69 ML/MIN
[2024-09-22 19:56] LABS: BILIRUBIN,URINE NEGATIVE (Neg); CLARITY,URINE CLEAR (Clear); COLOR,URINE YELLOW (Yellow); GLUCOSE, URINE NEGATIVE (Neg); KETONES,URINE NEGATIVE (Neg); LEUKOCYTE ESTERASE ,URINE NEGATIVE (Neg); NITRITES, URINE NEGATIVE (Neg); OCCULT BLOOD,URINE NEGATIVE (Neg); PROTEIN,URINE NEGATIVE (Neg); UROBILINOGEN,URINE 0.2 E.U/dL (0.2-1.0)
[2024-09-22 20:01] LABS: UA COLLECTION TYPE CLN CATCH MIDSTREAM
[2024-09-22] MEDS ORDERED: LEVE250T4 PO (20:32)
[2024-09-22 21:51] VITALS: BP 129/87; PULSE 97; RESP 14; TEMP 98.3; O2SAT 97
== END 2024-09-22 21:58 | disposition home or self-care (01) ==
LOC: ER 15:11
DX: G40.909 Epilepsy, unspecified, not intractable, without status epilepticus (principal); F31.9 Bipolar disorder, unspecified; F20.9 Schizophrenia, unspecified; F15.90 Other stimulant use, unspecified, uncomplicated; Z88.0 Allergy status to penicillin; Z79.899 Other long term (current) drug therapy
CPT/HCPCS: 36415; 70450; 71045; 80053; 81003; 84484; 85025; 93005; 96365; 99285; J1953; J7030